=== PATIENT | female | born 2005 | race Caucasian/White ===

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

== ENCOUNTER 2023-05-30 16:58 | Emergency (ER) | payer OTHER ==
[~2023-05-30] VITALS: Ht 152.4 cm; Wt 45.4 kg
[2023-05-30 17:25] VITALS: BP 106/77; PULSE 75; RESP 18; TEMP 98.4; O2SAT 98
== END 2023-05-30 20:41 | disposition left against medical advice (07) ==
LOC: MED 16:58
DX: R51.9 Headache, unspecified (principal); R11.0 Nausea; Z53.21 Procedure and treatment not carried out due to patient leaving prior to being seen by health care provider
CPT/HCPCS: 99281